=== PATIENT | female | born 1990 | race African-American/Black ===

== ENCOUNTER 2017-01-07 08:24 | Emergency (ER) | payer OTHER ==
[~2017-01-07] VITALS: Ht 149.9 cm; Wt 72.7 kg
[~2017-01-07 08:24] MED LIST: APAP/CODEINE ELI5 M1 OR; BENADRYL25 MG PO; NOHOMEMEDICATIONS; PREDNISONE 20 M20 MG PO; TRIAMCINOLONE A80 G2 TOP; ZPAK PO
[2017-01-07 08:28] VITALS: BP 122/78
[2017-01-07] MEDS ORDERED: NORCO 5-325 TA1 EACH PO (08:45)
[2017-01-07] MEDS ORDERED: PREDNISONE 20 M20 MG PO (08:45)
== END 2017-01-07 08:58 | disposition home or self-care (01) ==
LOC: ER 08:24
DX: M65.4 Radial styloid tenosynovitis [de Quervain] (principal)

== ENCOUNTER 2017-06-18 07:13 | Emergency (ER) | payer OTHER ==
[~2017-06-18] VITALS: Ht 157.5 cm; Wt 74.8 kg
--- NOTE | ~2017-06-18 | EKG ---
[address] [address] ELECTROCARDIOGRAM REPORT Name: MAYLIN WEISS Room #: DEP Danilo#: [id number] Admission: 06/18/17 Attend Phys: Discharge: 06/18/17 Date of : [birth year] Report #: [id number] THIS REPORT FOR: //name// [facility] ED Test Date: 2017-06-18 Test Time: 07:42:50 Pat Name: MAYLIN DORAN Department: Room: Gender: F Hr Operations Advisor: jarocho : 1990 Requested By: Ye Ramirez Order Number: [id number] MD: Edmund Peña Measurements Intervals [place] Rate: 96 P: 59 NM: 138 QRS: 40 QRSD: 77 T: 27 QT: 328 QTc: 415 Interpretive Statements Sinus rhythm Compared to ECG 02/09/2012 21:16:43 Sinus arrhythmia no longer present Electronically Signed On 06-18-2017 12:24:49 KITCHEN CHEF by Edmund Peña [email or web address] <ELECTRONICALLY SIGNED> By: Edmund Peña MD 06/18/17 1224 0742 0742 Edmund Peña MD /EPI
[~2017-06-18 07:13] MED LIST changes: +NORCO 5-325 TA1 EACH PO
[2017-06-18 07:54] LABS: HEMATOCRIT 42.1 % (37.0-47.0); HEMOGLOBIN 14.1 gm/dL (12.0-15.0); MCH 29.1 pg (26.0-34.0); MCHC 33.5 g/dL (28.0-37.0); MCV 86.8 fL (80.0-100.0); RBC 4.84 mil/uL (4.20-5.00); RDW 13.3 % (10.5-14.5); WBC 9.1 thou/uL (4.0-11.0)
[2017-06-18 08:10] LABS: CALCIUM 8.8 mg/dL (8.5-10.1); CREATININE 0.7 mg/dL (0.6-1.0); POTASSIUM 3.8 mmol/L (3.5-5.1)
== END 2017-06-18 09:13 | disposition home or self-care (01) ==
LOC: ER 07:13
PROVIDERS: Emergency Medicine
DX: F41.9 Anxiety disorder, unspecified (principal)